=== PATIENT | male | born 2000 | race Caucasian/White ===

== ENCOUNTER 2020-11-23 06:07 | Emergency (ER) | payer BC, SELFPAY ==
[2020-11-23] VITALS (7 sets, daily range): BP systolic 112–125; BP diastolic 56–94; PULSE 88–106; RESP 15–22; TEMP 37.1; O2SAT 96–100
--- NOTE | 2020-11-23 06:12 | ECG_ITS ---
Measurements Intervals [place] Rate: 97 P: 69 [place]: 150 QRS: 79 QRSD: 90 T: 59 QT: 322 QTc: 409 Interpretive Statements SINUS RHYTHM INCOMPLETE RIGHT BUNDLE BRANCH BLOCK ST ELEVATION IN ANTEROLAT/INF LEADS- PROBABLY EARLY REPOLARIZATION BASELINE ARTIFACT- II, III, AVF, V2-V6 BORDERLINE ECG Electronically Signed On 11-23-2020 6:38:54 CDT by Julián Goldman D.O.
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
[2020-11-23] MEDS: SODIUM CHLORIDE 0.9% IV 1,000 ML 999 ML IV CONT (06:24)
--- NOTE | 2020-11-23 06:35 | PC.NURSE ---
Called poison control, spoke with Gale. Gale advised to watch out for bradycardia or hypotension based on medications pt took. Will fax further instruction.
--- NOTE | 2020-11-23 06:42 | PC.NURSE ---
Pt and mother aware of need to collect urine sample. Urinal at bedside.
--- NOTE | 2020-11-23 06:54 | PC.NURSE ---
Called Lab to add orders from blood sent down.
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
[2020-11-23 07:32] LABS: Basophils Percent Auto 0.3 % (0.2-1.2); Eosinophils Percent Auto 0.1 % (0-4.4); Hematocrit 41.1 % (42.0-52.0); Hemoglobin 14.1 g/dL (14.0-18.0); Immature Granulocyte Absolute 0.12 K/mm3 (0.00-0.031); Immature Granulocyte Percent A 0.9 % (0-0.5); Lymphocytes Absolute Auto 1.75 K/mm3 (0.9-3.2); Lymphocytes Percent Auto 12.9 % (18.3-44.2); Mean Corpuscular HGB Conc 34.3 g/dl (32-36); Mean Corpuscular Hemoglobin 31.7 pg (26-34); Mean Corpuscular Volume 92.4 fl (80-100); Mean Platelet Volume 9.4 fl (7.4-10.4); Monocytes Absolute Auto 0.7 K/mm3 (0.1-0.6); Monocytes Percent Auto 5.2 % (2.6-8.5); Neutrophils Absolute Auto 10.9 K/mm3 (1.3-6.7); Neutrophils Percent Auto 80.6 % (45.5-73.1); Platelet Count Result 285 k/mm3 (150-375); Red Blood Count 4.45 M/mm3 (4.6-6.20); White Blood Count 13.5 K/mm3 (4.5-10.0)
[2020-11-23 07:41] LABS: Acetaminophen < 10 ug/mL (10-30); Ethanol 166 mg/dL (<10); Salicylate < 1.0 mg/dL (2-20)
[2020-11-23 07:47] LABS: Alanine Aminotransferase 24 U/L (4-50); Alkaline Phosphatase 86 U/L (38-126); Anion Gap 6 mmol/L (8-16); Aspartate Amino Transferase 58 U/L (17-59); Bilirubin,Total 0.2 mg/dL (0.2-1.3); Blood Urea Nitrogen 12 mg/dL (9-20); Calcium 7.9 mg/dL (8.4-10.2); Carbon Dioxide 28 mmol/L (22-30); Chloride 110 mmol/L (98-107); Estimated Glomerular Filt Rate > 60; Glucose 90 mg/dL (75-110); Potassium 4.2 mmol/L (3.4-5.0); Sodium 144 mmol/L (137-145)
--- NOTE | 2020-11-23 07:56 | PC.NURSE ---
pt unable to give urine sample at this time. charge nurse aware
--- NOTE | 2020-11-23 09:29 | PC.NURSE ---
Gale from [facility] called to check on pt.
--- NOTE | 2020-11-23 10:44 | PC.NURSE ---
Gale from [facility] controlled called to check on pt. States she is signing off on pt and new person will be Cony. Gale also states that pt was said to have taken unknown amount of hydroxyzine which can cause urinary retention.
[2020-11-23 11:54] LABS: Amphetamine Screen Urine Negative (Negative); Barbiturate Screen Urine Negative (Negative); Benzodiazepines Screen Urine Positive (Negative); Cannabinoid Screen Urine Positive (Negative); Cocaine Screen Urine Negative (Negative); Methadone Screen Urine Negative (Negative); Opiate Screen Urine Negative (Negative); Phencyclidine Screen Urine Negative (Negative)
[2020-11-23 12:25] LABS: Ethanol 85 mg/dL (<10)
--- NOTE | 2020-11-23 12:53 | PC.NURSE ---
Pt is medically cleared per Dr. Levine. Crisis has been contacted.
--- NOTE | 2020-11-23 14:30 | PC.NURSE ---
Lou from Crisis here to speak with pt.
--- NOTE | 2020-11-23 15:09 | PC.NURSE ---
Poison control called to check on pt. Funmilayo states that she will close out this case. If we need anything to call back.
== END 2020-11-23 15:53 | disposition home or self-care (01) ==
PROVIDERS: Emergency Medicine; Emergency Provider Family Medicine; PCP Internal Medicine
DX: T40.411A Poisoning by fentanyl or fentanyl analogs, accidental (unintentional), initial encounter (principal); T43.591A Poisoning by other antipsychotics and neuroleptics, accidental (unintentional), initial encounter; F10.10 Alcohol abuse, uncomplicated; Y90.6 Blood alcohol level of 120-199 mg/100 ml; F32.9 Major depressive disorder, single episode, unspecified; F41.9 Anxiety disorder, unspecified; I45.10 Unspecified right bundle-branch block; R94.31 Abnormal electrocardiogram [ECG] [EKG]
CPT/HCPCS: 36415; 51701; 80053; 80307; 85025; 93005; 96360; 99284; J7030